=== PATIENT | female | born 1980 | race Caucasian/White ===

== ENCOUNTER 2018-12-29 07:33 | Emergency (ER) | payer MEDICARE, MEDICAID ==
[2018-12-29 08:39] LABS: Hematocrit 22 % (35-47); Hemoglobin 6.6 g/dL (12.0-16.0); Mean Corpuscular HGB Conc 30 g/dL (31-36); Mean Corpuscular Hemoglobin 19 pg (27-31); Mean Corpuscular Volume 62 fL (80-97); Mean Platelet Volume 6.4 fL (7.4-10.4); Platelet Count 1302 10^3/uL (150-450); Red Blood Count 3.59 10^6 /uL (3.70-4.87); Red Cell Distribution Width 27 % (10-15); White Blood Count 7.1 10^3/uL (3.5-10.8)
[2018-12-29 08:45] LABS: ALT 8 U/L (7-52); AST 12 U/L (13-39); Albumin 4.3 g/dL (3.2-5.2); Albumin/Globulin Ratio 1.3 (1-3); Alkaline Phosphatase 70 U/L (34-104); Anion Gap 5 mmol/L (2-11); BUN/Creatinine Ratio 24.6 (8-20); Blood Urea Nitrogen 14 mg/dL (6-24); CO2 Carbon Dioxide 26 mmol/L (22-32); Calcium 9.3 mg/dL (8.6-10.3); Chloride 107 mmol/L (101-111); EGFR African American 144.4 (>60); EGFR Non-African American 119.3 (>60); Globulin 3.2 g/dL (2-4); Glucose 99 mg/dL (70-100); Magnesium 2.1 mg/dL (1.9-2.7); Potassium 4.2 mmol/L (3.5-5.0); Sodium 138 mmol/L (135-145); Total Protein 7.5 g/dL (6.4-8.9)
[2018-12-29 09:40] LABS: Microcytosis 3+
[2018-12-29 09:41] LABS: Polychromasia 1+
[2018-12-29 10:00] LABS: Iron < 20 ug/dL (50-212)
[2018-12-29 10:12] LABS: C Reactive Protein 7.18 mg/L (<8.01)
--- NOTE | 2018-12-29 10:24 | CONSULT ---
Consultation - Reason for Consultation Reason for Consultation: extreme thrombocytosis and r sided weakness Ordering Provider: Charlee Ames Chief Complaint: right sided weakness History of Present Illness: Very difficult historian, but per family,38 yo F w CP who at baseline can ambulate with assistance, last seen normal last night. When she woke up this am they tried to get her up to the bathroom and her right leg "was like a weight" "dragging behind her". She was also listing to the right. Given this they brought her to the ER. She did have some spasms of her right leg at home, and 2 unwitnessed here in the ER. Her blood work revealed a hb of 6.6 with an MCV of 62 and platelet count of 1.3 M. She does have a history of mild menorrhagia and iron deficiency in the past, however when her Hb was 8 in the past her platelets were <300k. Her last period finished ~2 days ago. Allergies/Medications Medication: NK [No Home Medications Reported] 12/29/18 [History Confirmed 12/29/18] Allergies/Adverse Reactions: Allergies Allergy/AdvReac Type Severity Reaction Status Date / Time azithromycin Allergy Unknown Verified 12/29/18 07:42 Reaction Details History - Past Medical History Other History: CP. iron deficiency - Social History Hx Alcohol Use: No Hx Tobacco Use: No Review of Systems - Review of Systems General Comments: unable to reliably provide Physical Exam - Physical Exam Physical Examination: Vital Signs Temp Pulse Resp BP Pulse Ox 99.1 F 88 18 123/81 100 12/29/18 07:37 12/29/18 07:37 12/29/18 07:37 12/29/18 07:37 12/29/18 07:37 lying flat in bed in nad follows commands r LE 3/5 strength clonus r ankle CTA bl s1 s2 nl soft nt +bs Results - Lab Results Lab Results: 12/29/18 12/29/18 08:21 08:21 WBC 7.1 RBC 3.59 L Hgb 6.6 L Hct 22 L MCV 62 L MCH 19 L MCHC 30 L RDW 27 H Plt Count 1302 H MPV 6.4 L Neut % (Auto) Not Reportable Lymph % (Auto) Not Reportable [place] % (Auto) Not Reportable Eos % (Auto) Not Reportable Baso % (Auto) Not Reportable Absolute Neuts (auto) Not Reportable Absolute Lymphs (auto) Not Reportable Absolute Monos (auto) Not Reportable Absolute Eos (auto) Not Reportable Absolute Basos (auto) Not Reportable Absolute Nucleated RBC Not Reportable Immature Gran % 1.0 Neutrophils % 79.0 Lymphocytes % 14.0 Monocytes % 4.0 Eosinophils % 2.0 Myelocytes % 1.0 Nucleated RBC % Not Reportable Normal RBC Morphology Not Reportable Polychromasia 1+ Hypochromasia 2+ Microcytosis 3+ Elliptocytes 1+ Sodium 138 Potassium 4.2 Chloride 107 Carbon Dioxide 26 Anion Gap 5 BUN 14 Creatinine 0.57 Est GFR ( Amer) 144.4 Est GFR (Non-Af Amer) 119.3 BUN/Creatinine Ratio 24.6 H Glucose 99 Calcium 9.3 Magnesium 2.1 Iron < 20 L Total Bilirubin 0.30 AST 12 L ALT 8 Alkaline Phosphatase 70 C-Reactive Protein 7.18 Total Protein 7.5 Albumin 4.3 Globulin 3.2 Albumin/Globulin Ratio 1.3 Assessment and Plan Impression: 38 yo F w CP presenting with right sided leg weakness and found to have anemia and profound thrombocytosis, concerning for a CVA. I requested a CT scan which does unfortunately confirm a CVA (per review with Dr. Messina). Given this I would recommend transfer for plateletphoresis as the fastest way to decrease platelets and prevent further events. I suspect her underlying iron deficiency is exacerbating her thrombocytosis, but there likely is also a primary marrow process that will need further investigation. I have relayed my recommendations to the ER and in discussion with Dr. Messina.
[2018-12-29 10:33] LABS: Ferritin 3.7 ng/mL (11-307)
--- NOTE | 2018-12-29 10:33 | ED ---
Lower Extremity - HPI Summary HPI Summary: Patient is a 38yo F with a PMHx of iron deficiency anemia and CP presenting to the ED with (per mother) R sided leg weakness, pain and spasms. Mother does state the R side has been more weak than the L at baseline and this has been worsening over the past year. She also has a hx of mild spasms in the bilateral lower extremities, however not for quite some time and never to this severity. mother states she was c/o pain this morning and was refusing to bear weight. The leg at this time was having apparent spasms per family and was intermittent, lasting several seconds with moments of stillness. The worst of the sxs were upon wakening this morning, and has improved since arrival to the ED. Per mother, she was well yesterday, although she has had more weakness over this past year. Denies other sxs. Pt c/o pain to the calf intermittently , denies other pain or sxs. Needs assistance ambulating at baseline, but this morning was unable to ambulate d/t the weakness and pain in the R leg. Denies upper ext sxs or TAVERA, confusion. - History of Current Complaint Chief Complaint: EDWeakness Stated Complaint: NO MOVEMENT IN R LEG PER MOTHER Time Seen by Provider: 12/29/18 07:55 Hx Obtained From: Patient Onset/Duration: Hours Severity Initially: Moderate Severity Currently: Moderate Pain Intensity: 10 Pain Scale Used: 0-10 Numeric Timing: Constant Location: Is Discrete @ - right leg weakness Associated Signs And Symptoms: Negative: Swelling, Redness, Bruising Aggravating Factor(s): Standing, Ambulation Alleviating Factor(s): Rest Able to Bear Weight: No - Risk Factors Gout Risk Factors: Negative DVT Risk Factors: Negative Septic Arthritis Risk Factor: Negative - Allergies/Home Medications Allergies/Adverse Reactions: Allergies Allergy/AdvReac Type Severity Reaction Status Date / Time azithromycin Allergy Unknown Verified 12/29/18 07:42 Reaction Details Home Medications: Home Medications NK [No Home Medications Reported] 12/29/18 [History Confirmed 12/29/18] PMH/Surg Hx/FS Hx/Imm Hx Previously Healthy: Yes - cerebral palsy Musculoskeletal History: Denies: Hx Osteoporosis - Immunization History Hx Pertussis Vaccination: No Immunizations Up to Date: Yes Infectious Disease History: No Infectious Disease History: Denies: Traveled Outside the [place] in Last 30 Days - Social History Occupation: Unemployed, Disabled Lives: With Family Alcohol Use: None Hx Substance Use: No Substance Use Type: Reports: None Hx Tobacco Use: No Smoking Status (MU): Never Smoked Tobacco Review of Systems Negative: Fever, Chills, Fatigue, Skin Diaphoresis Negative: Palpitations, Chest Pain Negative: Shortness Of Breath, Cough Positive: Other - right leg weakness and pain Negative: Rash, Bruising Positive: Weakness - right leg Psychological: Normal All Other Systems Reviewed And Are Negative: Yes Physical Exam Triage Information Reviewed: Yes Vital Signs On Initial Exam: Initial Vitals Temp Pulse Resp BP Pulse Ox 99.1 F 88 18 123/81 100 12/29/18 07:37 12/29/18 07:37 12/29/18 07:37 12/29/18 07:37 12/29/18 07:37 Vital Signs Reviewed: Yes Appearance: Positive: Well-Appearing, Well-Nourished Skin: Positive: Skin Color Reflects Adequate Perfusion Head/Face: Positive: Normal Head/Face Inspection Eyes: Positive: EOMI, Conjunctiva Clear Neck: Positive: Supple, No Lymphadenopathy Respiratory/Lung Sounds: Positive: Clear to Auscultation, Breath Sounds Present Cardiovascular: Positive: Pulses are Symmetrical in both Upper and Lower Extremities Musculoskeletal: Positive: Other - no pain on palpation throughout the bilateral lower extremities; plantar flexion and dorsiflexion intact. Able to flex and extend at the hip. Denies hip pain, knee pain, ankle pain.. Negative : Edema Left, Edema Right Neurological: Positive: Speech Normal - per mother - baseline, Other - unable to assess gait, mild weakness throughout the R leg, unable to complete full neuro d/t hx of MR and CP, however per mother states this is her baseline other than her jerking motion to the R leg and weakness Procedures - Sedation Patient Received Moderate/Deep Sedation with Procedure: No Diagnostics - Vital Signs Vital Signs Temp Pulse Resp BP Pulse Ox 12/29/18 07:37 99.1 F 88 18 123/81 100 - Laboratory Lab Results: Lab Results 12/29/18 12/29/18 Range/Units 08:21 08:21 WBC 7.1 (3.5-10.8) 10^3/uL RBC 3.59 L (3.70-4.87) 10^6 /uL Hgb 6.6 L (12.0-16.0) g/dL Hct 22 L (35-47) % MCV 62 L (80-97) fL MCH 19 L (27-31) pg MCHC 30 L (31-36) g/dL RDW 27 H (10-15) % Plt Count 1302 H (150-450) 10^3/uL MPV 6.4 L (7.4-10.4) fL Neut % (Auto) Not Reportable Lymph % (Auto) Not Reportable [place] % (Auto) Not Reportable Eos % (Auto) Not Reportable Baso % (Auto) Not Reportable Absolute Neuts (auto) Not Reportable Absolute Lymphs (auto) Not Reportable Absolute Monos (auto) Not Reportable Absolute Eos (auto) Not Reportable Absolute Basos (auto) Not Reportable Absolute Nucleated RBC Not Reportable Immature Gran % 1.0 (0-9) % Neutrophils % 79.0 % Lymphocytes % 14.0 % Monocytes % 4.0 % Eosinophils % 2.0 % Myelocytes % 1.0 (0-1) % Nucleated RBC % Not Reportable Normal RBC Morphology Not Reportable Polychromasia 1+ Hypochromasia 2+ Microcytosis 3+ Elliptocytes 1+ Hem Pathologist Commnt Pending Sodium 138 (135-145) mmol/L Potassium 4.2 (3.5-5.0) mmol/L Chloride 107 (101-111) mmol/L Carbon Dioxide 26 (22-32) mmol/L Anion Gap 5 (2-11) mmol/L BUN 14 (6-24) mg/dL Creatinine 0.57 (0.51-0.95) mg/dL Est GFR ( Amer) 144.4 (>60) Est GFR (Non-Af Amer) 119.3 (>60) BUN/Creatinine Ratio 24.6 H (8-20) Glucose 99 (70-100) mg/dL Calcium 9.3 (8.6-10.3) mg/dL Magnesium 2.1 (1.9-2.7) mg/dL Iron < 20 L (50-212) ug/dL Ferritin Pending Total Bilirubin 0.30 (0.2-1.0) mg/dL AST 12 L (13-39) U/L ALT 8 (7-52) U/L Alkaline Phosphatase 70 (34-104) U/L C-Reactive Protein 7.18 (<8.01) mg/L Total Protein 7.5 (6.4-8.9) g/dL Albumin 4.3 (3.2-5.2) g/dL Globulin 3.2 (2-4) g/dL Albumin/Globulin Ratio 1.3 (1-3) Result Diagrams: 12/29/18 08:21 12/29/18 08:21 Lab Statement: Any lab studies that have been ordered have been reviewed, and results considered in the medical decision making process. Lower Extremity Course/Dx - Course Course Of Treatment: Pt is evaluated for weakness, pain and spasms in the R leg since this morning. Labs obtained which show a low H and H at 6.6 and 22. Platelet count 1302. Mother reports she has been on her menses which typically is very heavy. At this point, Dr. Chisholm, oncology was called for consult who recommended CT brain. This shows: Hyperdense mass in the medial left parietal convexity may represent infarct or mass. Discussed case with Dr. Messina and Dr. Chisholm which both recommend transfer to [facility] for further evaluation of stroke and possible plateletphoresis. Discussed with Dr. Acevedo at [facility] who accepts patient for admission and recommends fluids and 2 baby aspirin. Pt will be sent to , neurology ICU. Pt hemodynamically stable upon discharge. - Diagnoses Provider Diagnoses: CVA (cerebral vascular accident), Thrombocytosis Discharge ED - Sign-Out/Discharge Documenting (check all that apply): Patient Departure - Discharge Plan Condition: Fair Disposition: TRANS HIGHER LVL OF CARE FAC Referrals: Soniya Trammell MD [Primary Care Provider] - - Billing Disposition and Condition Condition: FAIR Disposition: Trans Higher Lvl of Care Fac
[2018-12-29] MEDS ORDERED: Aspirin 81 mg CHEW TAB* 81 MG TAB.CHEW PO ONE (10:58)
--- NOTE | 2018-12-29 11:25 | CONSULT ---
Consult Consult: Neurology Consult Note Date of service: 12/29/2018 Neurology was consulted by Dr. Shazia Chisholm to evaluate the patient for stroke. Chief complaint: gait instability, right leg weakness History of Present Illness: Rossy Bocanegra is a 38-year-old female with history of anemia who presented with gait instability and right leg weakness. Last known well was unknown, according to the family, but the patient has been complaining of inability to apply weight on the right leg for approximately 24 hours. She was able to walk yesterday with more assistance. She woke up today requiring full assistance. It was estimated that she may have had more weakness in the right leg at [phone] on 12/28/2018. 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 According to her dad, there is definitely more weakness on the right leg today compare to other days. There has been no reported falls or head injury. Rossy is very pleasant and does not complain of any symptoms. She reported having weakness in her leg for more than one year (unsure how her reliable is her history due to her intellectual disability). NIHSS: 3 for mild right leg drift, limb ataxia in one limb, and reduced sensation to on the right. The patient was deemed not a candidate for Labs, Imaging and Other diagnostics: WBC: 7.1 Hemoglobin: 6.6 Hematocrit: 22 Platelet Count: 1302 Sodium: 138 BUN/Creatinine ratio: 24.6 IMAGING: Brain CT head without contrast completed on 1041: hyperdense mass in the medial left parietal convexity may represent infarct or mass. Chronic sinusitis involving the maxillary and ethmoid air cells. Past Medical History: cerebral palsy, iron deficiency Family History: No family history of stroke or seizures Social History: Denied tobacco or alcohol use Medications: NK [No Home Medications Reported] 12/29/18 [History Confirmed ] Allergies: Azithromycin Review of Systems: A 12-point ROS was obtained and otherwise negative except for what was mentioned in the HPI. Physical Exam: Vitals: Vital Signs - 12 hr Temp Pulse Resp BP Pulse Ox 12/29/18 11:45 98.8 F 12/29/18 11:37 10 100/62 12/29/18 11:06 90 127/79 100 12/29/18 11:00 87 100 12/29/18 10:36 98 119/70 100 12/29/18 10:06 92 123/77 100 12/29/18 09:36 93 119/72 100 12/29/18 09:07 108 100 12/29/18 08:07 93 119/77 100 12/29/18 07:37 99.1 F 88 18 123/81 100 General: well nourished, well developed female with baseline intellectual disability due to CP. Dry oral mucosa. Alert, cooperative, no apparent distress, appears younger than stated age. Head: normocephalic, without obvious abnormality Eyes: conjunctivae/corneas clear Neck: supple, symmetrical. No carotid bruit. No lymphadenopathy. Lungs: clear to auscultation bilaterally, non-labored CV: regular rhythm, S1, S2 normal, radial pulses palpable Extremities: normal range of motion with no cyanosis. Skin: no skin lesions or lacerations Psych: affect-broad and normal mood. Neurological examination: Mental status: awake; alert to self and place. Baseline spastic dysarthria. She has psychomotor slowing Cranial nerves: I: not tested II, III, IV, : normal confrontation B/L, Pupils midrange and reactive to light , normal consensual response; extraocular muscles are intact; no ptosis; no conjugate or asymmetrical nystagmus V /2/3: reduced sensation to light touch on the right face. VII: no facial droop; facial symmetry while smiling & wrinkling of forehead; tight lid closure VIII: able to hear throughout the history process IX & X: symmetric palatal elevation XI: normal strength against resistance XII: tongue is symmetrical & midline with no atrophy or fasciculations Motor (R/L): able to elevate all extremities against gravity, but asymmetric in the lower extremity with motor strength measuring 4/5 on the right lower and 5- on the left. 3/5 dorsiflexion on the right. Reflexes R L Brachioradialis 3+ 3+ Biceps 3+ 3+ Triceps 3+ 2+ Patella 3+ 3+ Ankle ankle clonus, sustained on the right and nonsustained 4-5 beats on the left. Plantar extensor flexor Sensation: reduced sensation to light touch and temperature sensation on the right. Reduced vibration at the toes bilaterally. Coordination: normal finger to nose and rapid alternating movements. Gait & Station: n/a Assessment: 1. Acute right leg weakness and gait instability- - The history suggests a left RUSSEL vascular territory ischemic infarction. There is evidence of hypo and hyperdensity (small area) inbetween the RUSSEL-MCA vascular territory changes on the left hemisphere. The area is concerning for stroke, but a small mass should be ruled out. Given the clinical history, temporal profile of her symptoms onset, concomitant with the thrombocytosis, the likely diagnosis is stroke. Etiology thrombosis of the distal vessels in the setting of thrombocytosis. - NIHSS of 3. She is outside the window for IV tPA. Given the low NIHSS, it's unlikely to be an LVO. 2. Thrombocytosis of unclear etiology. She has no fevers and does not appear to be septic. 3. Anemia 4. Dehydration Recommendations: - She needs to be transfused. Hemoglobin goal of at least 8. - Please do a bedside dysphagia screen. If she passes, then start aspirin 81 mg chewable x 2. - The patient is being transferred to [facility] for plateletpharesis - Neuro checks every 1 hour - Start IV fluids as she appears dehydrated - MRI brain with and without, MRA head without, and MRI neck without contrast to assess for stroke or mass lesion - She will need PT/OT/SENIOR SQL DEVELOPER evaluation and treatment Discussed the above recommendations with Dr. Kathrine Messina MD Date: 12/29/2018 Time: 11:51
[2018-12-29 11:45] VITALS: BP 100/62
== END 2018-12-29 11:56 | disposition short-term general hospital (02) ==
LOC: ED 07:33
DX: I63.9 Cerebral infarction, unspecified (principal); D47.3 Essential (hemorrhagic) thrombocythemia; D64.9 Anemia, unspecified; E86.0 Dehydration; G80.9 Cerebral palsy, unspecified; Z88.1 Allergy status to other antibiotic agents
CPT/HCPCS: 36415; 70450; 80053; 82728; 83540; 83735; 85025; 85060; 85652; 86140; 99223; 99285; A9270-GY